=== PATIENT | female | born 1950 | race American Indian/Alaskan Native ===

== ENCOUNTER 2018-10-12 06:16 | Day surgery (SDC) | payer MEDICARE ==
[2018-10-12 07:10] LABS: Basophils # (Auto) 0.1 K/mm3 (0.0-0.1); Basophils % (Auto) 1.1 % (0.0-1.8); Eosinophils # (Auto) 0.3 K/mm3 (0.0-0.4); Hematocrit 43.3 % (30.3-42.9); Hemoglobin 14.3 gm/dl (10.1-14.3); Lymphocytes # (Auto) 3.3 K/mm3 (1.2-5.4); Lymphocytes % (Auto) 37.1 % (13.4-35.0); Mean Corpuscular HGB Conc 33 % (30-34); Mean Corpuscular Volume 87 fl (79-97); Monocytes # (Auto) 0.5 K/mm3 (0.0-0.8); Platelet Count 126 K/mm3 (140-440); Red Blood Count 4.97 M/mm3 (3.65-5.03); Red Cell Distribution Width 16.2 % (13.2-15.2)
[2018-10-12 07:22] LABS: INR 0.81 (0.87-1.13)
[2018-10-12 07:24] LABS: Partial Thromboplastin Time 31.8 Sec. (24.2-36.6)
[2018-10-12 07:30] LABS: Calcium 9.2 mg/dL (8.4-10.2)
[2018-10-12] MEDS ORDERED: NACL 0.9% 500 ML 500 ML IV SCH (08:00)
[2018-10-12] MEDS ORDERED: HEPARIN/NS 5000 UNIT/500ML(CATH LAB) 1,000 ML IR ONE (08:39)
[2018-10-12] MEDS ORDERED: NITROGLYCERIN SYRINGE 3 ML ONE (08:40)
[2018-10-12] MEDS: SUBLIMAZE ONE ×3 (09:12→09:27)
[2018-10-12] MEDS: VERSED ONE ×3 (09:12→09:27)
[2018-10-12] MEDS: XYLOCAINE 2% INFILTRATI ONE ×2 (09:14→09:20)
[2018-10-12] MEDS: CALAN ONE ×3 (09:16→09:22)
[2018-10-12] MEDS: HEPARIN 10,000 UNITS/10 ML ONE ×2 (09:21→09:22)
[2018-10-12] MEDS ORDERED: ZOFRAN ONE (09:36)
--- NOTE | 2018-10-12 10:18 | Cardiac Catherization Report ---
P PERIPHERAL ANGIOGRAM INDICATION FOR PROCEDURE: Jer Redman MD. PROCEDURE: This is a peripheral angiogram runoff, bilateral renal selective. She has known mild chronic kidney disease. She was prehydrated appropriately, contrast use is minimized and also used Visipaque. PROCEDURE IN DETAIL: The patient was brought to catheterization lab in a postabsorptive state, prepped and draped in sterile fashion. Using left radial approach, a 2 mL of 2% lidocaine used to anesthetize the left wrist. A standard 6-Hungarian hydrophilic sheath used to cannulate the left radial artery via modified Seldinger technique. We used a pigtail catheter placed in the proximal abdominal aorta. A DSA abdominal aortography was performed. Due to her size, technically somewhat difficult, but reasonable imaging. Next, we used the pigtail catheter in the distal aorta and proper digital subtraction automated runoff, bilateral lower extremities to the feet is performed. Next, as we were unable to see the renals well and she has uncontrolled hypertension, selective renal artery angiography was performed bilaterally with JR4 catheter. Next, catheter removed from the body. Sheath removed. The patient tolerated procedure well. There were no complications. DATA: Aortic pressure is 170/80. The patient remained in normal sinus rhythm throughout the procedure. Anatomy: There is [id number] diffuse aortic atheroma. Renal arteries are patent bilaterally without significant disease. Pullback bilaterally is normal. There is mild disease in the distal aorta, but nonobstructive. No gradient. Bilateral common iliacs, external iliacs are patent. Common femoral is patent bilaterally. SFA is chronically occluded in the mid segment on the left, reconstitutes the distal left SFA. Right SFA with chronic disease with maximal narrowing of 80% in the mid segment. Popliteals are patent bilaterally. Good 2-vessel runoff, bilateral infrapopliteal. CONCLUSIONS: 1. [id number] diffuse aortic atheroma. 2. Patent renals bilaterally. 3. 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 4. 80% stenosis of the right mid SFA. 5. Good 2-vessel runoff bilaterally. We will bring him back to office to discuss. IV fluids for 3 hours hydration over the weekend. Repeat creatinine next week, avoid any nephrotoxins. In the meantime, results of the procedure were explained to the patient. All questions and concerns were addressed. Standard radial care. JOB# [id number] SBMaryellen/NTS
[2018-10-12] MEDS ORDERED: NACL 0.9% 1000 ML 1,000 ML IV SCH (11:08)
--- NOTE | 2018-10-12 11:16 | Short Stay Summary ---
Short Stay Documentation Date of service: 10/12/18 - History H&P: obtained from office - Allergies and Medications Current Medications: Allergies hydrochlorothiazide [From Hyzaar] Allergy (Severe, Verified 10/12/18 06:56) Anaphylaxis losartan [From Hyzaar] Allergy (Severe, Verified 10/12/18 06:56) Anaphylaxis codeine Allergy (Intermediate, Verified 10/12/18 06:55) Rash Home Medications Medication Instructions Recorded Confirmed Last Taken Type Aspirin EC [Aspirin Enteric Coated 81 mg PO DAILY 10/12/18 10/12/18 10/11/18 History TAB] 81mg Cilostazol [Pletal] 100 mg PO BID 10/12/18 10/12/18 1 Day Ago History ~10/11/18 Metoprolol [Lopressor TAB] 50 mg PO BID 10/12/18 10/12/18 Unknown History Rosuvastatin (Nf) [Crestor] 10 mg PO QHS 10/12/18 10/12/18 1 Day Ago History ~10/11/18 Valsartan [Diovan] 160 mg PO DAILY 10/12/18 10/12/18 10/11/18 History 160mg amLODIPine [Norvasc] 10 mg PO DAILY 10/12/18 10/12/18 1 Day Ago History ~10/11/18 1 hydrALAZINE [Apresoline TAB] 25 mg PO TID 10/12/18 10/12/18 10/11/18 History 25mg hydroCHLOROthiazide [HCTZ] 12.5 mg PO QDAY 10/12/18 10/12/18 1 Day Ago History ~10/11/18 traMADol [Ultram 50 MG tab] 50 tab PO DAILY PRN 10/12/18 10/12/18 1 Day Ago History ~10/11/18 50mg Active Medications Sodium Chloride (Nacl 0.9% 500 Ml) 500 mls @ 50 mls/hr IV DIRECT NEREYDA Last Admin: 10/12/18 09:15 Dose: 100 mls Documented by: Sodium Chloride (Nacl 0.9% 1000 Ml) 1,000 mls @ 100 mls/hr IV DIRECT NEREYDA Stop: 10/12/18 14:07 - Brief post op/procedure progress note Date of procedure: 10/12/18 Pre-op diagnosis: PVD Post-op diagnosis: same Procedure: peripheral angiogram - see dictated cath report Anesthesia: local Estimated blood loss: none Condition: stable - Disposition Condition at discharge: Good Disposition: [id number] TO HOME OR SELFCARE - Discharge Diagnoses (1) PVD (peripheral vascular disease) Status: Chronic Short Stay Discharge Plan Activity: advance as tolerated Diet: low fat, low cholesterol, low salt, diabetic Wound: open to air, keep clean and dry, per your surgeon's advice Additional Instructions: - Make follow up appointment in 1 week. [phone] - Resume home [facility] [place] on Monday10/14/2018 - Labwork (BMP) in [place] [facility] on 10/15/2018 @ 10:15 Follow up with: MATT AGUILERA MD [Primary Care Provider] - 7 Days RO PANCHAL MD [Staff Physician] - 7 Days (Labwork (BMP) in [place] [facility] on 10/15/2018 @ 10:15) Forms: Post Arteriogram Instruct
[2018-10-12 12:49] VITALS: BP 114/67
== END 2018-10-12 13:00 | disposition home or self-care (01) ==
LOC: CATHLABREC 06:16
PROVIDERS: ATTEND Internal Medicine
DX: I70.0 Atherosclerosis of aorta (principal); I70.201 Unspecified atherosclerosis of native arteries of extremities, right leg; I12.9 Hypertensive chronic kidney disease with stage 1 through stage 4 chronic kidney disease, or unspecified chronic kidney disease; F17.210 Nicotine dependence, cigarettes, uncomplicated; N18.9 Chronic kidney disease, unspecified; I25.10 Atherosclerotic heart disease of native coronary artery without angina pectoris; K21.9 Gastro-esophageal reflux disease without esophagitis; E78.00 Pure hypercholesterolemia, unspecified; Z80.3 Family history of malignant neoplasm of breast; Z88.5 Allergy status to narcotic agent; Z79.82 Long term (current) use of aspirin; Z79.899 Other long term (current) drug therapy; Z95.1 Presence of aortocoronary bypass graft; Z90.710 Acquired absence of both cervix and uterus; Z98.890 Other specified postprocedural states; Z82.49 Family history of ischemic heart disease and other diseases of the circulatory system; Z88.8 Allergy status to other drugs, medicaments and biological substances
CPT/HCPCS: 36200; 36252; 36415; 75625; 75716; 80048; 85025; 85610; 85730; C1894; J1644; J2250; J2405; J3010; J7040; 36245; Q9967